=== PATIENT | female | born 1965 | race Caucasian/White ===

== ENCOUNTER 2024-06-01 22:47 | Observation (INO) | payer OTHER ==
[2024-06-01 23:50] VITALS: BMI 29.5
[2024-06-02] MEDS ORDERED: traZODone HCl 50 MG TAB PO PRN (01:09)
[2024-06-02] MEDS ORDERED: Ibuprofen 200 MG TAB PO PRN (01:09)
[2024-06-02] MEDS ORDERED: hydrOXYzine Pamoate 25 mg Capsule PO PRN (01:09)
[2024-06-02] MEDS ORDERED: Ondansetron PF 4 MG/2 ML Vial IVP PRN (01:13)
[2024-06-02] MEDS ORDERED: Acetaminophen 325 MG TAB PO PRN (01:13)
[2024-06-02] MEDS ORDERED: Methocarbamol 500 MG TAB PO PRN (01:29)
[2024-06-02] MEDS: Lidocaine 2% Viscous Solution 20 ML, Aluminum & Magnesium Hydroxide 30 ML, Donnatal Eli... SSW SCH (02:15)
[2024-06-02] MEDS ORDERED: Nitroglycerin 0.4 MG TAB (25 Tab Bottle) SL PRN (02:17)
[2024-06-02 06:57] LABS: Amphetamine Not Detected (NotDetected); Barbiturates Screen Not Detected (NotDetected); Benzodiazepine Screen Not Detected (NotDetected); Cocaine Metabolite Screen Not Detected (NotDetected); Methadone Not Detected (NotDetected); Methamphetamine Not Detected (NotDetected); Opiate Screen Not Detected (NotDetected); Oxycodone Screen Not Detected (NotDetected); Phencyclidine (PCP) Not Detected (NotDetected); THC/Cannabinoid Screen Not Detected (NotDetected); Tricyclic Screen Not Detected (NotDetected)
[2024-06-02 07:23] LABS: #Basophils 0.03 10x3/uL (0.0-0.2); %Basophils 0.5 % (0.0-1.0); %Eosinophils 5.7 % (0.0-10.0); %Lymphocytes 35.5 % (21.0-51.0); %Monocytes 10.7 % (0.0-10.0); %Neutrophils 47.3 % (42.0-75.0); Hematocrit 40.7 % (36.0-47.0); Hemoglobin 13.1 g/dL (12.0-16.0); Mean Corpuscular HGB CONC 32.2 g/dL (32.0-36.0); Mean Corpuscular Hemoglobin 28.1 pg (27.0-31.0); Mean Corpuscular Volume 87.3 fL (78.0-98.0); Mean Platelet Volume 11.1 fL (7.4-10.4); Platelet Count 239 10x3/uL (130-400); RBC Distribution Width 13.6 % (11.5-14.5); Red Blood Cell (RBC) Count 4.66 mill/uL (4.20-5.40)
[2024-06-02 07:41] LABS: Anion Gap 13 mmol/L (10-20); BUN (Urea Nitrogen) 11 mg/dL (9.8-20.1); Calc. Creatinine Clearance 106 mL/min (70-130); Calcium 8.9 mg/dL (7.8-10.44); Carbon Dioxide 25 mmol/L (22-29); Chloride 105 mmol/L (98-107); Estimated GFR 95; Glucose 83 mg/dL (70-105); Potassium 3.8 mmol/L (3.5-5.1); Sodium 139 mmol/L (136-145)
[2024-06-02 07:44] LABS: Troponin I Less than 0.010 ng/mL (< 0.028)
[2024-06-02 07:45] LABS: Troponin I Less than 0.010 ng/mL (< 0.028)
[2024-06-02 09:13] LABS: Cardiac Risk 3.7 (Less than 4.5)
[2024-06-02] MEDS: Amlodipine 5 MG TAB PO SCH (09:25)
[2024-06-02] MEDS: Famotidine 20 MG TAB PO SCH (09:26)
[2024-06-02] MEDS: Heparin 5,000 UNITS/ML VIAL SC SCH (09:26)
[2024-06-02] MEDS: Hydrochlorothiazide 25 MG TAB PO SCH (09:26)
[2024-06-02] MEDS: Aspirin 81 mg Enteric Coated Tablet PO SCH (09:26)
[2024-06-02] MEDS: FLU (Fluarix Triv) TS24-25(6MOS UP)/PF 45 MCG/0.5 ML Syringe IM ONE (09:31)
[2024-06-02 11:50] VITALS: BP 166/94; TEMP 98.1
[2024-06-02] MEDS: Azelastine 137 MCG/NASAL Spray 30 ML NS SCH (11:50)
[2024-06-02] MEDS ORDERED: Regadenoson 0.4 MG/5 ML SYRINGE ONE (12:11)
[2024-06-02] MEDS ORDERED: Azelastine 137 MCG/NASAL Spray 30 ML NS SCH (21:00)
[2024-06-02] MEDS ORDERED: Mirtazapine 30 MG TAB PO SCH (21:00)
== END 2024-06-02 16:59 | disposition home or self-care (01) ==
LOC: OBS 23:29 → UNDOADMOB 23:29 → OBS 06-02 01:13
PROVIDERS: ADMIT Internal Medicine; ATTEND Internal Medicine
PROC: B24BZZZ Ultrasonography of Heart with Aorta (ICD-10-PCS; principal; 2024-06-02)
DX: R07.89 Other chest pain (principal); I10 Essential (primary) hypertension; I48.91 Unspecified atrial fibrillation; I35.0 Nonrheumatic aortic (valve) stenosis; I25.10 Atherosclerotic heart disease of native coronary artery without angina pectoris; F15.10 Other stimulant abuse, uncomplicated; Z95.5 Presence of coronary angioplasty implant and graft; Z79.1 Long term (current) use of non-steroidal anti-inflammatories (NSAID); Z79.899 Other long term (current) drug therapy
CPT/HCPCS: 36415; 78451; 80048; 80061; 80306; 85025; 90656; 93017; 93306; 96372; A9502; G0378; J1644; J2785; Q0177